=== PATIENT | male | born 1965 | race Hispanic/Latino ===

== ENCOUNTER 2020-03-06 10:47 | Emergency (ER) | payer SELFPAY ==
[~2020-03-06] VITALS: Ht 165.1 cm; Wt 88.5 kg
[2020-03-06] MEDS ORDERED: HYDROCODONE/APAP 10MG-325MG TAB PO ONE (11:30)
[2020-03-06] MEDS ORDERED: METHYLPREDNISOLONE SOD SUCC 125 MG/2ML VIAL IM ONE (12:45)
[2020-03-06] MEDS ORDERED: ULTRAM50 MG PO (12:47)
[2020-03-06 13:17] VITALS: BP 135/88
[2020-03-06] MEDS ORDERED: KETOROLAC TROMETHAMINE 60 MG/2 ML VIAL IM ONE (13:30)
== END 2020-03-06 13:20 | disposition home or self-care (01) ==
LOC: ER 11:07
DX: M79.671 Pain in right foot (principal); M72.2 Plantar fascial fibromatosis; I10 Essential (primary) hypertension
CPT/HCPCS: 73630; 99284; J1885; J2930

== ENCOUNTER 2020-04-24 17:23 | Emergency (ER) | payer SELFPAY ==
[~2020-04-24] VITALS: Ht 165.1 cm; Wt 88.5 kg
[~2020-04-24 17:23] MED LIST: ULTRAM50 MG PO
[2020-04-24] MEDS ORDERED: SODIUM CHLORIDE 0.9% 1000ML 1,000 ML IV STA (18:14)
[2020-04-24] MEDS ORDERED: KETOROLAC TROMETHAMINE 30 MG/ML VIAL IV STA (18:14)
--- OUTSIDE RECORDS SUMMARY | 2020-04-24 18:14 | XMS REPORT | Continuity of Care Document ---
Author Author [facility] Organization [facility] Address [address] [place] [phone] Phone Unavailable Care Team Providers Care Pipe Coverer And Insulator Name Role Phone NONSTAFF PCP Unavailable Joao ARMSTRONG Attphyjoao Unavailable Problems Condition Name Condition Details Condition Category Status Onset Date Resolution Date Last Treatment Date Treating Clinician Comments Source Problem Condition Active [facility] Allergies, Adverse Reactions, Alerts This patient has no known allergies or adverse reactions. Social History Social Habit Start Date Stop Date Quantity Comments Source Sex Assigned At 1965 00:00:00 1965 00:00:00 Male [facility] Medications Ordered Medication Name Filled Medication Name Start Date Stop Da te Current Medication? Ordering Clinician Indication Dosage Frequency Signature (SIG) Comments Components Source Tramadol Hcl (Ultram) 50 Mg TABLET Tramadol Hcl (Ultram) 50 Mg TABLET 2020-03-06 12:47:00 Yes 50 Every 6 Ho urs as needed for Mild Pain (1-3) Or Fever>100.8 [facility] Vital Signs Vital Name Observation Time Observation Value Comments Source Body Temperature 2020-03-06 13:17:00 98.4 [degF] [facility] Weight 2020-03-06 10:50:00 195 [lb_av] [facility] BMI (Body Mass Index) 2020-03-06 10:50:00 32.4 kg/m2 [facility] Procedures This patient has no known procedures. Plan of Care Planned Activity Planned Date Details Comments Source Instructions Plantar Fasciitis [facility] Encounters Start Date/Time End Date/Time Encounter Type Admission Type Attendi [facility] Care Department Encounter ID Source 2020-03-06 11:07:2020-03-06 13:20:00 Departed Emergency Room 1 FOZIA ARMSTRONG [facility] [id number] I [facility] Results Test Description Test Time Test Comments Results Result Comments Source FOOT RIGHT COMPLETE 2020-03-06 12:11:00 [facility] [address] [address] Patient Name: BATSHEVA GILLILAND MR #: [id number] : 1965 Age/Sex: 55/M Req #: [id number] Adm Physician: Ordered by: FOZIA ARMSTRONG DO Report #: [id number] Location: ER Room/Bed: Procedure: [id number] DX/FOOT RIGHT COMPLETE Exam Date: 03/06/20 Exam Time: 1110 REPORT STATUS: Signed X-ray 3 views of the right foot HISTORY: Heel pain for 3 weeks. COMPARISON: None available. FINDINGS: Bones/joints: No acute fracture or dislocation. There is mild hallux valgus with degenerative changes of the first metatarsophalangeal joint and multiple interphalangeal joints. There is a prominent calcaneal spur and enthesophyte at the insertion of the Achilles tendon. Soft tissues: No focal soft tissue abnormality. IMPRESSION: 1. No acute fracture or dislocation. 2. Prominent calcaneal spur and enthesophyte at the insertion of the Achilles tendon. These findings can be associated with plantar fasciitis and Achilles tendinopathy. Signed by: Ricky Mcqueen MD on 03/06/2020 12:13 PM Dictated By: RICKY MCQUEEN MD [id number] Transcribed By: KRYSTAL on 03/06/20 1213 COPY TO: FOZIA ARMSTRONG DO
--- NOTE | 2020-04-24 18:24 | Emergency Department Note ---
History of Present Illnes History of Present Illness Chief Complaint: Genitourinary History of Present Illness This is a 55 year old male arrived to the ED with complaints of left flank pain radiating to the LLQ, worse with motion. Chief Complaint Comment FOR MONTHS, PATIENT HAS BEEN HAVING INTERMITTENT SHARP LEFT FLANK PAIN, RADIATES TO SIDE. HE DESCRIBES HIS SIDE FEELING NUMB. DENIES ANY N/V/D. PAIN IS WORSE WITH LYING DOWN OR SITTING TOO LONG. Historian: Patient Arrival Mode: Car Additional Treatment HARNESS INSPECTOR: NONE Onset (how long ago): day(s) Radiation: Reports non-radiation Severity: mild Onset quality: gradual Duration (how long): day(s) Timing of current episode: intermittent Progression: waxing and waning Chronicity: new Context: Denies recent illness, Denies recent surgery Relieving factors: none Exacerbating factors: none Past Medical/Family History Physician Review I have reviewed the patient's past medical and family history. Any updates have been documented here. Past Medical History Recent Fever: No Clinical Suspicion of Infectio: No New/Unexplained Change in Ment: No Past Medical History: Hypertension Past Surgical History: None Social History Smoking Cessation: Never Smoker Alcohol Use: Social Review of Systems Review of Systems Constitutional: Reports no symptoms EENTM: Reports no symptoms Cardiovascular: Reports no symptoms Respiratory: Reports no symptoms Gastrointestinal: Reports no symptoms Genitourinary: Reports no symptoms Musculoskeletal: Reports as per HPI, Reports back pain Integumentary: Reports no symptoms Neurological: Reports no symptoms Psychological: Reports no symptoms Endocrine: Reports no symptoms Hematological/Lymphatic: Reports no symptoms Review of other systems: All other systems negative Physical Exam Related Data Allergies: Coded Allergies: No Known Allergies (Unverified , 04/24/20) Triage Vital Signs Vital Signs Date Time Temp Pulse Resp B/P (MAP) Pulse Ox O2 Delivery O2 Flow Rate FiO2 04/24/20 17:42 98.1 99 18 182/114 Room Air Vital signs reviewed: Yes Physical Exam CONSTITUTIONAL Constitutional: Present well-developed, Present well-nourished HENT HENT: Present normocephalic, Present atraumatic, Present oropharynx clear/moist, Present nose normal HENT L/R: Present left ext ear normal, Present right ext ear normal EYES Eyes: Reports PERRL, Reports conjunctivae normal NECK Neck: Present ROM normal PULMONARY Pulmonary: Present effort normal, Present breath sounds normal CARDIOVASCULAR Cardiovascular: Present regular rhythm, Present heart sounds normal, Present capillary refill normal, Present normal rate GASTROINTESTINAL Abdominal: Present soft, Present nontender, Present bowel sounds normal, Present other (tenderness noted over left side of back, no skin break, no cellulitis, tender on palpation) GENITOURINARY Genitourinary: Present exam deferred SKIN Skin: Present warm, Present dry MUSCULOSKELETAL Musculoskeletal: Present ROM normal NEUROLOGICAL Neurological: Present alert, Present oriented x 3, Present no gross motor or sensory deficits PSYCHOLOGICAL Psychological: Present mood/affect normal, Present judgement normal Results Laboratory Lab results reviewed: Yes Laboratory comments Laboratory Tests Test 04/24/20 18:20 04/24/20 18:06 White Blood Count 8.22 x10e3/uL (4.8-10.8) Red Blood Count 5.25 x10e6/uL (4.3-5.7) Hemoglobin 16.4 g/dL (14.0-18.0) Hematocrit 45.7 % (38.2-49.6) Mean Corpuscular Volume 87.0 fL (81-99) Mean Corpuscular Hemoglobin 31.2 pg (28-32) Mean Corpuscular Hemoglobin Concent 35.9 g/dL (31-35) Red Cell Distribution Width 12.7 % (11.7-14.4) Platelet Count 178 x10e3/uL (140-360) Neutrophils (%) (Auto) 58.6 % (38.7-80.0) Lymphocytes (%) (Auto) 30.3 % (18.0-39.1) Monocytes (%) (Auto) 8.0 % (4.4-11.3) Eosinophils (%) (Auto) 2.2 % (0.0-6.0) Basophils (%) (Auto) 0.7 % (0.0-1.0) Neutrophils # (Auto) 4.8 (2.1-6.9) Lymphocytes # (Auto) 2.5 (1.0-3.2) Monocytes # (Auto) 0.7 (0.2-0.8) Eosinophils # (Auto) 0.2 (0.0-0.4) Basophils # (Auto) 0.1 (0.0-0.1) Absolute Immature Granulocyte (auto 0.02 x10e3/uL (0-0.1) Sodium Level 136 mmol/L (136-145) Potassium Level 3.7 mmol/L (3.5-5.1) Chloride Level 101 mmol/L (98-107) Carbon Dioxide Level 24 mmol/L (22-29) Anion Gap 14.7 mmol/L (8-16) Blood Urea Nitrogen 11 mg/dL (7-26) Creatinine 1.16 mg/dL (0.72-1.25) Estimat Glomerular Filtration Rate > 60 ML/MIN (60-) BUN/Creatinine Ratio 9 (6-25) Glucose Level 319 mg/dL (74-118) Calcium Level 8.8 mg/dL (8.4-10.2) Total Bilirubin 0.8 mg/dL (0.2-1.2) Aspartate Amino Transf (AST/SGOT) 34 IU/L (5-34) Alanine Aminotransferase (ALT/SGPT) 42 IU/L (0-55) Alkaline Phosphatase 115 IU/L (40-150) Total Protein 8.2 g/dL (6.5-8.1) Albumin < 0.4 g/dL (3.5-5.0) Globulin 7.8 g/dL (2.3-3.5) Albumin/Globulin Ratio 0.1 (0.8-2.0) Urine Color Yellow (YELLOW) Urine Clarity Clear (CLEAR) Urine pH 6 (5 - 7) Urine Specific [place] 1.025 (1.010-1.025) Urine Protein Negative (NEGATIVE) Urine Glucose (UA) 500 (NEGATIVE) Urine Ketones Trace (NEGATIVE) Urine Blood Negative (NEGATIVE) Urine Nitrite Negative (NEGATIVE) Urine Bilirubin Negative (NEGATIVE) Urine Urobilinogen 1 mg/dL (0.2 - 1) Urine Leukocyte Esterase Negative (NEGATIVE) Urine RBC 0-5 /HPF (0-5) Urine WBC 0-5 /HPF (0-5) Urine Epithelial Cells Few /LPF (NONE) Urine Bacteria Rare /HPF (NONE) Imaging Imaging results reviewed: Yes Impressions IMPRESSION: No nephrolithiasis or evidence of obstructive urolithiasis. 4 mm pleural-based right lower lobe nodule. Without risk factors, no follow-up is necessary. With risk factors, follow-up with low-dose chest CT in one year is optional. Hepatic steatosis. Signed by: Dr. Keyur Cuellar MD on 04/24/2020 7:18 PM Assessment & Plan Medical Decision Making MDM Presentation most consistent with Renal Colic from a Non-infected Kidney Stone. Given History and Exam I have lower suspicion for atypical appendicitis, genital torsion, acute cholecystitis, AAA, Aortic Dissection, Serious Bacterial Illness or other emergent intraabdominal pathology. Workup: CBC, BMP, CT Abd/Pelvis noncontrast, UA, reassess Findings: Reassesment: Patient tolerating PO and pain controlled Disposition: Discharge. Strict return precautions for infected stone or PO intolerance discussed. Assessment & Plan Final Impression: (1) Back pain Depart Disposition: HOME, SELF-CARE Last Vital Signs Date Time Temp Pulse Resp B/P (MAP) Pulse Ox O2 Delivery O2 Flow Rate FiO2 04/24/20 17:42 98.1 99 18 182/114 Room Air Home Meds Active Scripts Tramadol Hcl (ULTRAM) 50 Mg Tablet, 50 MG PO Q6HR PRN for Mild Pain (1-3) or Fever>100.8, #14 TAB Prov:FOZIA ARMSTRONG DO 04/24/20 Tramadol Hcl (ULTRAM) 50 Mg Tablet, 50 MG PO Q6HR PRN for Mild Pain (1-3) or Fever>100.8, #20 TAB Prov:FOZIA ARMSTRONG DO 03/06/20 Medications in the ED Sodium Chloride 1,000 ml @ 0 mls/hr Q0M STAT IV ; Start 04/24/20 at 18:14; Stop 04/24/20 at 18:16; Status DC Ketorolac Tromethamine 30 mg ONCE STAT IV ; Start 04/24/20 at 18:14; Stop 04/24/20 at 18:15; Status UNV FOZIA ARMSTRONG DO Apr 24, 2020 18:24
[2020-04-24 18:29] LABS: BASOPHILS # (AUTO) 0.1 (0.0-0.1); BASOPHILS % 0.7 % (0.0-1.0); EOSINOPHILS # (AUTO) 0.2 (0.0-0.4); EOSINOPHILS % 2.2 % (0.0-6.0); HEMATOCRIT 45.7 % (38.2-49.6); HEMOGLOBIN 16.4 g/dL (14.0-18.0); LYMPHOCYTES # (AUTO) 2.5 (1.0-3.2); LYMPHOCYTES % 30.3 % (18.0-39.1); MEAN CORPUSCULAR HEMOGLOBIN 31.2 pg (28-32); MEAN CORPUSCULAR HGB CONC 35.9 g/dL (31-35); MONOCYTES # (AUTO) 0.7 (0.2-0.8); NEUTROPHILS # (AUTO) 4.8 (2.1-6.9); NEUTROPHILS % 58.6 % (38.7-80.0); PLATELET COUNT 178 x10e3/uL (140-360); RED BLOOD COUNT 5.25 x10e6/uL (4.3-5.7); RED CELL DISTRIBUTION WIDTH 12.7 % (11.7-14.4)
[2020-04-24 18:47] LABS: ALANINE AMINOTRANSFERASE 42 IU/L (0-55); ALKALINE PHOSPHATASE 115 IU/L (40-150); ANION GAP 14.7 mmol/L (8-16); BLOOD UREA NITROGEN 11 mg/dL (7-26); BUN/CREATININE RATIO 9 (6-25); CALCIUM 8.8 mg/dL (8.4-10.2); CARBON DIOXIDE 24 mmol/L (22-29); CHLORIDE 101 mmol/L (98-107); CREATININE, SERUM 1.16 mg/dL (0.72-1.25); EST GLOMERULAR FILTRATION RATE > 60 ML/MIN (60-); GLUCOSE 319 mg/dL (74-118); POTASSIUM 3.7 mmol/L (3.5-5.1); SODIUM 136 mmol/L (136-145)
[2020-04-24 18:48] LABS: ALBUMIN < 0.4 g/dL (3.5-5.0); ALBUMIN/GLOBULIN RATIO 0.1 (0.8-2.0)
--- NOTE | 2020-04-24 19:21 | Diagnostic Imaging Report ---
EXAM: CT Abdomen and Pelvis WITHOUT contrast INDICATION: ^Y ^left flank pain ^[id number] ^182 COMPARISON: None. TECHNIQUE: Abdomen and pelvis were scanned utilizing a multidetector helical scanner from the lung base to the pubic symphysis without administration of IV contrast. Absence of intravenous contrast decreases sensitivity for detection of focal lesions and vascular pathology. Coronal and sagittal reformations were obtained. Routine protocol was performed. IV CONTRAST: None ORAL CONTRAST: Water COMPLICATIONS: None RADIATION DOSE: Total DLP: 602.46 mGy*cm Estimated effective dose: (DLP x 0.015 x size factor) mSv CTDIvol has been reviewed. It is below the limits set by the Radiation Protocol Committee (RPC). FINDINGS: LINES and TUBES: None. LOWER THORAX: 4 mm pleural-based right lower lobe nodule. HEPATOBILIARY: Hepatic steatosis. Otherwise, unenhanced liver is unremarkable. No biliary ductal dilation. GALLBLADDER: No radio-opaque stones or sludge. No wall thickening. SPLEEN: No splenomegaly. PANCREAS: No focal masses or ductal dilatation. ADRENALS: No adrenal nodules KIDNEYS/URETERS: No hydronephrosis. Limited for evaluation of renal parenchyma without intravenous contrast. No stones. GI TRACT: No abnormal distention, wall thickening, or evidence of bowel obstruction. Appendix is normal. PELVIC ORGANS/BLADDER: Unremarkable. LYMPH NODES: No lymphadenopathy. VESSELS: There is mild atherosclerotic disease in the aorta and major arterial branches. PERITONEUM / RETROPERITONEUM: No free air or fluid. BONES: Unremarkable. SOFT TISSUES: Unremarkable. IMPRESSION: No nephrolithiasis or evidence of obstructive urolithiasis. 4 mm pleural-based right lower lobe nodule. Without risk factors, no follow-up is necessary. With risk factors, follow-up with low-dose chest CT in one year is optional. Hepatic steatosis. Signed by: Dr. Keyur Cuellar MD on 04/24/2020 7:18 PM
[2020-04-24 20:39] LABS: CLARITY,URINE CLEAR (CLEAR); COLOR,URINE YELLOW (YELLOW); LEUKOCYTE ESTERASE ,URINE NEGATIVE (NEGATIVE); NITRITE,URINE NEGATIVE (NEGATIVE); PROTEIN,URINE DIPSTICK NEGATIVE (NEGATIVE)
[2020-04-24 20:40] LABS: BACTERIA,URINE RARE /HPF; BILIRUBIN,URINE NEGATIVE (NEGATIVE); KETONES,URINE TRACE (NEGATIVE); RBC,URINE 0-5 /HPF (0-5); URINE UROBILINOGEN 1 mg/dL (0.2 - 1); WBC,URINE (MAN) 0-5 /HPF (0-5)
[2020-04-24 20:42] LABS: EPITHELIAL CELLS,URINE FEW /LPF
[2020-04-24] MEDS ORDERED: ULTRAM50 MG PO (21:05)
[2020-04-24] MEDS ORDERED: HYDROCODONE/APAP 7.5MG-325MG 1 EA TAB PO PRN (21:15)
[2020-04-24 21:27] VITALS: BP 176/91
== END 2020-04-24 21:30 | disposition home or self-care (01) ==
LOC: ER 17:45
DX: M54.5 Low back pain (principal); R10.32 Left lower quadrant pain; I10 Essential (primary) hypertension
CPT/HCPCS: 36415; 74176; 80053; 81001; 85025; 99284; J1885; J7030